=== PATIENT | female | born 1960 | race Hispanic/Latino ===

== ENCOUNTER 2017-07-18 08:17 | Day surgery (SDC) | payer BC ==
[~2017-07-18] VITALS: Ht 160 cm; Wt 81.6 kg
[~2017-07-18 08:17] MED LIST: ALBU18HF7 IH; MONT10TA24 PO; SODIUM CHLORIDE 0.9% 1000ML 1,000 ML IV ONE; [UNRECOGNIZED DRUG - OTHER] PO
[2017-07-18 08:39] VITALS: BP 133/64
[2017-07-18] MEDS ORDERED: MIDAZOLAM HCL 1 MG/ML 2ML VIAL ONE (09:09)
[2017-07-18] MEDS ORDERED: MEPERIDINE-PF 50 MG/ML SYG ONE (09:09)
== END 2017-07-18 10:15 | disposition home or self-care (01) ==
LOC: ENDO 08:17 → DAH 08:17 → ENDO 10:15
PROVIDERS: ATTEND Internal Medicine Gastroenterology
DX: Z12.11 Encounter for screening for malignant neoplasm of colon (principal); Q43.8 Other specified congenital malformations of intestine; J45.909 Unspecified asthma, uncomplicated; F32.9 Major depressive disorder, single episode, unspecified; Z82.49 Family history of ischemic heart disease and other diseases of the circulatory system; Z90.49 Acquired absence of other specified parts of digestive tract; Z98.890 Other specified postprocedural states
CPT/HCPCS: 45378; A4606; J2175; J2250; J7030

== ENCOUNTER → 2020-11-12 | Outpatient (CLI) | payer OTHER ==
[~2020-11-12] MED LIST changes: -MONT10TA24 PO; +MONT10TA32 PO; -SODIUM CHLORIDE 0.9% 1000ML 1,000 ML IV ONE
== END | disposition home or self-care (01) ==
LOC: OIH 14:45
PROVIDERS: ATTEND Family Medicine
DX: Z13.6 Encounter for screening for cardiovascular disorders (principal)
CPT/HCPCS: 75571